=== PATIENT | female | born 1995 | race Caucasian/White ===

== ENCOUNTER → 2017-10-07 | Outpatient (REF) | payer BC ==
[2017-10-07 12:21] LABS: ALBUMIN 4.3 GM/DL (3.2-5.2); ALBUMIN/GLOBULIN RATIO 1.34 (1.00-1.93); ALKALINE PHOSPHATASE 65 U/L (45-117); ALT/SGPT 49 U/L (12-78); ANION GAP 8 MEQ/L (8-16); AST/SGOT 22 U/L (7-37); BILIRUBIN,TOTAL 0.8 MG/DL (0.2-1.0); BLOOD UREA NITROGEN 13 MG/DL (7-18); CALCIUM LEVEL 9.4 MG/DL (8.5-10.1); CARBON DIOXIDE LEVEL 29 MEQ/L (21-32); CHLORIDE LEVEL 105 MEQ/L (98-107); CREATININE FOR GFR 0.69 MG/DL (0.55-1.02); GLOMERULAR FILTRATION RATE > 60.0 (>60); GLUCOSE, FASTING 65 MG/DL (70-105); POTASSIUM SERUM 3.9 MEQ/L (3.5-5.1); SODIUM LEVEL 142 MEQ/L (136-145); TOTAL PROTEIN 7.5 GM/DL (6.4-8.2)
== END ==
LOC: M SFHCCLAY 08:13
PROVIDERS: ATTEND Nurse Practitioner Family
DX: E87.6 Hypokalemia (principal)

== ENCOUNTER → 2017-10-20 | Outpatient (CLI) | payer BC ==
[~2017-10-20] MED LIST: ISOVUE-370 76% 100ML VIAL (Q9967) As Ordered ONE
--- NOTE | 2017-10-21 16:28 | REP ---
CT pulmonary angiogram: With IV contrast. History: Chest pain. Comparison studies: No comparison study. Contrast dose: 75 cc's of Isovue [address] technique: Helical scanning is acquired and overlapping 1.5 mm and contiguous 3 mm axial images are reformatted. In addition, a 3-D work station is deployed to generate thick slab maximum intensity projection images in sagittal and coronal imaging projections. CT pulmonary angiographic findings: There is good opacification of the pulmonary arterial tree and there is no CT evidence to suggest pulmonary embolus. Maximal intensity projection images show no evidence of filling defect or vessel cutoff. There is no evidence of hilar or mediastinal mass or adenopathy. The thoracic aorta enhances homogeneously and is normal in caliber and contour. No adrenal lesion is seen. Lung window settings demonstrate granulomatous calcifications scattered in the lungs bilaterally. No endobronchial disease is seen. No significant pulmonary nodule or mass lesion is observed. No infiltrate is seen. Impression: No active disease. Scattered granulomatous calcifications. Signed by Toribio Nix MD 10/21/2017 04:19 P
== END ==
LOC: M RAD 18:29
PROVIDERS: ATTEND Internal Medicine Pulmonary Disease
DX: R07.89 Other chest pain (principal); R91.8 Other nonspecific abnormal finding of lung field
CPT/HCPCS: 71275; Q9967

== ENCOUNTER → 2017-10-23 | Outpatient (CLI) | payer BC | LOC: M SMT 11:08 | PROVIDERS: ATTEND Internal Medicine Pulmonary Disease | DX: R91.1 Solitary pulmonary nodule (principal) ==

== ENCOUNTER → 2017-11-04 | Outpatient (REF) | payer BC ==
[2017-11-04 12:08] LABS: ALBUMIN/GLOBULIN RATIO 1.21 (1.00-1.93); ALKALINE PHOSPHATASE 67 U/L (45-117); ALT/SGPT 39 U/L (12-78); ANION GAP 7 MEQ/L (8-16); AST/SGOT 15 U/L (7-37); BILIRUBIN,TOTAL 0.5 MG/DL (0.2-1.0); BLOOD UREA NITROGEN 11 MG/DL (7-18); CALCIUM LEVEL 9.1 MG/DL (8.5-10.1); CARBON DIOXIDE LEVEL 29 MEQ/L (21-32); CHLORIDE LEVEL 105 MEQ/L (98-107); CREATININE FOR GFR 0.65 MG/DL (0.55-1.02); GLOMERULAR FILTRATION RATE > 60.0 (>60); GLUCOSE, FASTING 89 MG/DL (70-105); MAGNESIUM LEVEL 1.9 MG/DL (1.8-2.4); POTASSIUM SERUM 4.3 MEQ/L (3.5-5.1); SODIUM LEVEL 141 MEQ/L (136-145); T UPTAKE 33 % (30-39); THYROXINE (T4) 9.6 UG/DL (4.5-12.0); TOTAL PROTEIN 7.3 GM/DL (6.4-8.2)
[2017-11-06 00:11] LABS: Lyme Disease IgG/IgM Antibodie <0.91 ISR (0.00-0.90); Lyme Disease IgM Ab Quantitati <0.80 index (0.00-0.79)
== END ==
LOC: M SFHCCLAY 07:22
PROVIDERS: ATTEND Nurse Practitioner Family
DX: E87.6 Hypokalemia (principal); L30.9 Dermatitis, unspecified; R07.9 Chest pain, unspecified

== ENCOUNTER → 2017-11-07 | Outpatient (CLI) | payer BC ==
[2017-11-07 18:05] LABS: BASO % 0.4 % (0.0-1.0); EOS # 0.1 10^3/uL (0.0-0.50); EOS % 0.6 % (0.0-3.0); IMMATURE GRANULOCYTE % 0.3 % (0-0); LYMPH # 2.5 10^3/uL (1.5-6.5); LYMPH % 22.9 % (24.0-44.0); MEAN CORPUSCULAR HEMOGLOBIN 28.3 pg (27.0-33.0); MEAN CORPUSCULAR HGB CONC 33.3 g/dl (32.0-36.5); MEAN CORPUSCULAR VOLUME 85.1 fl (80.0-96.0); MONO # 0.6 10^3/uL (0.0-0.8); MONO % 5.3 % (0.0-5.0); NEUTROPHILS # 7.6 10^3/uL (1.8-7.7); NEUTROPHILS % 70.5 % (36.0-66.0); PLATELET COUNT, AUTOMATED 269 10^3/uL (150-450); RED CELL DISTRIBUTION WIDTH 12.4 % (11.5-14.5); WHITE BLOOD COUNT 10.8 10^3/uL (4.0-10.0)
[2017-11-07 18:08] LABS: ALBUMIN 4.2 GM/DL (3.2-5.2); ALKALINE PHOSPHATASE 73 U/L (45-117); ALT/SGPT 35 U/L (12-78); AST/SGOT 14 U/L (7-37); BILIRUBIN,DIRECT 0.1 MG/DL (0.0-0.2); BILIRUBIN,TOTAL 0.4 MG/DL (0.2-1.0); CALCIUM LEVEL 8.7 MG/DL (8.5-10.1); CREATININE FOR GFR 0.95 MG/DL (0.55-1.02); GLOMERULAR FILTRATION RATE > 60.0 (>60); TOTAL PROTEIN 7.7 GM/DL (6.4-8.2)
[2017-11-07 19:38] LABS: ERYTHROCYTE SEDIMENTATION RATE 11 mm/hr (0-20)
[2017-11-12 00:07] LABS: SJOGREN'S ANTI SS-A <0.2 AI (0.0-0.9); SJOGREN'S ANTI SS-B <0.2 AI (0.0-0.9)
[2017-11-12 14:15] LABS: AUREOBASIDIUM PULLULANS Negative (Negative); MICROPOLYSPORA FAENI AB Negative (Negative); PIGEON SERUM AB Negative (Negative); THERMOACTINOMYCES SACCHARI Negative (Negative); THERMOACTINOMYCES VULGARIS Negative (Negative); VITAMIN D 1,25 DIHYDROXY 38.5 pg/mL (19.9-79.3)
== END ==
LOC: M LAB 16:41
PROVIDERS: ATTEND Internal Medicine Pulmonary Disease
DX: R07.89 Other chest pain (principal)

== ENCOUNTER → 2017-11-11 | Outpatient (CLI) | payer BC ==
[~2017-11-11] MED LIST changes: -ISOVUE-370 76% 100ML VIAL (Q9967) As Ordered ONE; +METHACHOLINE KIT (J7674) INH ONE
--- NOTE | 2017-11-11 09:20 | PFTRPT ---
Tech: Sincere ROMANO RRT Age: 22 Sex: Female Race: Height: 67.00 Inches Weight: 247.00 Lbs BSA: 2.21 Diagnosis: R07.89 METHACHOLINE CHALLENGE REPORT ORDERING PROVIDER: Marvin Larkin DO DATE OF SERVICE: 11/11/17 INTERPRETATION: The study was of excellent technical quality. Under protocol, methacholine was administered. Even after a maximal dose of 25 mg (188.875 CDUs ), no provocation dose was achieved. IMPRESSION: Negative methacholine challenge study. MTDD
== END ==
LOC: M CARPUL 08:33
PROVIDERS: ATTEND Internal Medicine Pulmonary Disease
DX: R07.89 Other chest pain (principal)
CPT/HCPCS: 94070; J7674

== ENCOUNTER 2017-11-20 15:41 | Emergency (ER) | payer BC ==
[2017-11-20] MEDS: ACETAMINOPHEN TAB 650MG DOSE (2X325MG) PO (16:45)
[2017-11-20 17:34] LABS: BASO % 0.2 % (0.0-1.0); EOS # 0.1 10^3/uL (0.0-0.50); EOS % 0.9 % (0.0-3.0); IMMATURE GRANULOCYTE % 0.5 % (0-0); LYMPH # 0.5 10^3/uL (1.5-6.5); LYMPH % 8.9 % (24.0-44.0); MEAN CORPUSCULAR HEMOGLOBIN 27.7 pg (27.0-33.0); MEAN CORPUSCULAR HGB CONC 33.3 g/dl (32.0-36.5); MEAN CORPUSCULAR VOLUME 83.2 fl (80.0-96.0); MONO # 0.5 10^3/uL (0.0-0.8); MONO % 7.7 % (0.0-5.0); NEUTROPHILS # 4.8 10^3/uL (1.8-7.7); NEUTROPHILS % 81.8 % (36.0-66.0); PLATELET COUNT, AUTOMATED 174 10^3/uL (150-450); RED CELL DISTRIBUTION WIDTH 12.6 % (11.5-14.5); WHITE BLOOD COUNT 5.8 10^3/uL (4.0-10.0)
[2017-11-20 17:50] LABS: PLT CLUMPS? POS FLAG; POS COUNT POS FLAG
[2017-11-20 17:51] LABS: ADD MORPHOLOGY? YES; PLATELET CLUMPS SMALL AMT
[2017-11-20] MEDS: NS 1,000 ML IV (18:00)
[2017-11-20 18:09] LABS: ANION GAP 9 MEQ/L (8-16); BLOOD UREA NITROGEN 5 MG/DL (7-18); CALCIUM LEVEL 8.6 MG/DL (8.5-10.1); CARBON DIOXIDE LEVEL 26 MEQ/L (21-32); CHLORIDE LEVEL 98 MEQ/L (98-107); CREATININE FOR GFR 0.67 MG/DL (0.55-1.02); GLOMERULAR FILTRATION RATE > 60.0 (>60); GLUCOSE, FASTING 85 MG/DL (70-105); POTASSIUM SERUM 3.2 MEQ/L (3.5-5.1); SODIUM LEVEL 133 MEQ/L (136-145)
[2017-11-20] MEDS: POTASSIUM CHLORIDE 10 MEQ SR TABLET PO (18:28)
[2017-11-20] MEDS: LIDOCAINE VISCOUS 2% SOLN 15ML UDC PO (18:49)
[2017-11-20] MEDS: AZITHROMYCIN 250 MG TAB PO ×2 (19:08→19:20)
[2017-11-20] MEDS: FIORICET TAB PO (19:08)
== END 2017-11-20 19:27 | disposition home or self-care (01) ==
LOC: M ED 15:41
DX: J02.0 Streptococcal pharyngitis (principal); R51 Headache; R50.9 Fever, unspecified; M54.2 Cervicalgia; E87.6 Hypokalemia; Z79.899 Other long term (current) drug therapy; Z88.8 Allergy status to other drugs, medicaments and biological substances
CPT/HCPCS: 80048

== ENCOUNTER → 2017-12-02 | Outpatient (REF) | payer BC ==
[2017-12-02 12:15] LABS: ANION GAP 6 MEQ/L (8-16); BLOOD UREA NITROGEN 15 MG/DL (7-18); CALCIUM LEVEL 8.9 MG/DL (8.5-10.1); CARBON DIOXIDE LEVEL 29 MEQ/L (21-32); CHLORIDE LEVEL 107 MEQ/L (98-107); CREATININE FOR GFR 0.63 MG/DL (0.55-1.02); GLOMERULAR FILTRATION RATE > 60.0 (>60); GLUCOSE, FASTING 88 MG/DL (70-105); POTASSIUM SERUM 4.1 MEQ/L (3.5-5.1); SODIUM LEVEL 142 MEQ/L (136-145)
[2017-12-02 12:24] LABS: CORTISOL AM 13.9 UG/DL (4.3-22.4)
== END ==
LOC: M SFHCCLAY 09:04
DX: E87.6 Hypokalemia (principal)
CPT/HCPCS: 82533

== ENCOUNTER → 2017-12-10 | Outpatient (REF) | payer BC ==
[2017-12-10 17:28] LABS: ANION GAP 5 MEQ/L (8-16); CARBON DIOXIDE LEVEL 30 MEQ/L (21-32); CHLORIDE LEVEL 106 MEQ/L (98-107); POTASSIUM SERUM 3.8 MEQ/L (3.5-5.1); SODIUM LEVEL 141 MEQ/L (136-145)
== END ==
LOC: M SFHCCLAY 10:00
DX: E87.6 Hypokalemia (principal)
CPT/HCPCS: 80051

== ENCOUNTER → 2017-12-11 | Outpatient (CLI) | payer BC ==
[2017-12-16 10:16] LABS: ALDOS/RENIN RATIO 5.1 (0.0-30.0); ALDOSTERONE 13.6 ng/dL (0.0-30.0); RENIN ACTIVITY 2.669 ng/mL/hr (0.167-5.380)
== END ==
LOC: M LAB 11:31
DX: E87.6 Hypokalemia (principal); J18.1 Lobar pneumonia, unspecified organism
CPT/HCPCS: 84244

== ENCOUNTER → 2018-01-07 | Outpatient (REF) | payer BC ==
[2018-01-07 11:47] LABS: ANION GAP 7 MEQ/L (8-16); CARBON DIOXIDE LEVEL 29 MEQ/L (21-32); CHLORIDE LEVEL 104 MEQ/L (98-107); POTASSIUM SERUM 4.1 MEQ/L (3.5-5.1); SODIUM LEVEL 140 MEQ/L (136-145)
== END ==
LOC: M SFHCCLAY 09:14
DX: E87.6 Hypokalemia (principal)

== ENCOUNTER → 2018-03-18 | Outpatient (REF) | payer BC ==
[2018-03-18 12:14] LABS: ANION GAP 5 MEQ/L (8-16); BLOOD UREA NITROGEN 13 MG/DL (7-18); CARBON DIOXIDE LEVEL 30 MEQ/L (21-32); CHLORIDE LEVEL 106 MEQ/L (98-107); CREATININE FOR GFR 0.61 MG/DL (0.55-1.30); GLOMERULAR FILTRATION RATE > 60.0 (>60); GLUCOSE, FASTING 67 MG/DL (70-100); POTASSIUM SERUM 3.8 MEQ/L (3.5-5.1); SODIUM LEVEL 141 MEQ/L (136-145)
== END ==
LOC: M LABDRAWC 11:31
DX: E87.6 Hypokalemia (principal)
CPT/HCPCS: 80048

== ENCOUNTER → 2018-10-22 | Outpatient (CLI) | payer BC | LOC: M CLY 11:12 | DX: S99.911A Unspecified injury of right ankle, initial encounter (principal); X58.XXXA Exposure to other specified factors, initial encounter; Y92.9 Unspecified place or not applicable; Y93.9 Activity, unspecified; Y99.9 Unspecified external cause status | CPT/HCPCS: 73610 ==

== ENCOUNTER → 2018-10-22 | Outpatient (REF) | payer BC ==
[2018-10-22 16:30] LABS: HEMATOCRIT 44.9 % (36.0-47.0); HEMOGLOBIN 14.6 g/dl (12.0-15.5); MEAN CORPUSCULAR HEMOGLOBIN 28.6 pg (27.0-33.0); MEAN CORPUSCULAR HGB CONC 32.5 g/dl (32.0-36.5); MEAN CORPUSCULAR VOLUME 87.9 fl (80.0-96.0); PLATELET COUNT, AUTOMATED 260 10^3/uL (150-450); RED BLOOD COUNT 5.11 10^6/uL (4.00-5.40); RED CELL DISTRIBUTION WIDTH 12.9 % (11.5-14.5); WHITE BLOOD COUNT 8.9 10^3/uL (4.0-10.0)
[2018-10-22 16:45] LABS: ALBUMIN 3.8 GM/DL (3.2-5.2); ALBUMIN/GLOBULIN RATIO 0.97 (1.00-1.93); ALKALINE PHOSPHATASE 95 U/L (45-117); ALT/SGPT 55 U/L (12-78); ANION GAP 9 MEQ/L (8-16); AST/SGOT 30 U/L (7-37); BILIRUBIN,TOTAL 0.8 MG/DL (0.2-1.0); BLOOD UREA NITROGEN 17 MG/DL (7-18); CALCIUM LEVEL 8.5 MG/DL (8.5-10.1); CARBON DIOXIDE LEVEL 27 MEQ/L (21-32); CHLORIDE LEVEL 103 MEQ/L (98-107); CHOLESTEROL LEVEL 165 MG/DL (<200); CHOLESTEROL RISK RATIO 3.055 (<5); CREATININE FOR GFR 0.79 MG/DL (0.55-1.30); GLOMERULAR FILTRATION RATE > 60.0 (>60); GLUCOSE, FASTING 78 MG/DL (70-100); HDL CHOLESTEROL 54 MG/DL (>40); LDL CHOLESTEROL 87 MG/DL (<100); NON-HDL-C 111 MG/DL; POTASSIUM SERUM 4.1 MEQ/L (3.5-5.1); SODIUM LEVEL 139 MEQ/L (136-145); TOTAL PROTEIN 7.7 GM/DL (6.4-8.2); TRIGLYCERIDES LEVEL 118 MG/DL (<150)
== END ==
LOC: M SFHCCLAY 10:49
DX: E87.6 Hypokalemia (principal); F41.9 Anxiety disorder, unspecified; Z13.29 Encounter for screening for other suspected endocrine disorder; Z13.6 Encounter for screening for cardiovascular disorders
CPT/HCPCS: 84443

== ENCOUNTER → 2019-10-04 | Outpatient (CLI) | payer BC ==
[~2019-10-04] MED LIST changes: +AZIT500T5 PO; +LEVO500T3 PO; +LORA1TAB12 PO; -METHACHOLINE KIT (J7674) INH ONE; +POTA10CA32 PO; +VENL37.52 PO
--- NOTE | 2019-10-04 12:51 | REP ---
Five views right ribs and chest: 10/04/2019. Indication: Right-sided rib pain. Comparison: 12/02/2017. Findings: There is no evidence of rib fracture. Mild S-shaped thoracolumbar scoliosis is noted. Small left upper lobe granuloma is again noted. The lungs are free of airspace consolidation. There is no pleural effusion, pneumothorax or underlying contusion. The cardiac silhouette is unremarkable. Impression: There is no evidence of an acute rib fracture. Electronically Signed by Gab Rodriguez DO 10/04/2019 12:41 P
[2019-10-04 19:37] LABS: APPEARANCE, URINE CLEAR (CLEAR); BACTERIA, URINE AUTO NEGATIVE (NEGATIVE); BILIRUBIN, URINE AUTO NEGATIVE (NEGATIVE); BLOOD, URINE BLOOD 1+ (NEGATIVE); COLOR, URINE STRAW (YELLOW); GLUCOSE, URINE (UA) AUTO NEGATIVE (NEGATIVE); KETONE, URINE AUTO NEGATIVE (NEGATIVE); LEUKOCYTE ESTERASE, URINE AUTO NEGATIVE (NEGATIVE); NITRITE, URINE AUTO NEGATIVE (NEGATIVE); PROTEIN, URINE AUTO NEGATIVE (NEGATIVE); RBC, URINE AUTO 0 /HPF (0-3); SPECIFIC GRAVITY URINE AUTO 1.001 (1.002-1.035); SQUAMOUS EPITHELIAL CELL UR AU 0 /HPF (0-6); UROBILINOGEN, URINE AUTO 0.2 mg/dL (0.0-2.0); WBC, URINE AUTO 0 /HPF (0-3)
== END ==
LOC: M CLY 11:49
PROVIDERS: ATTEND Family Medicine
DX: R07.81 Pleurodynia (principal)

== ENCOUNTER 2019-12-10 12:25 | Emergency (ER) | payer BC, MEDICAID, OTHER, SELFPAY ==
[~2019-12-10] VITALS: Ht 175.3 cm; Wt 136.2 kg
[~2019-12-10 12:25] MED LIST changes: -LORA1TAB12 PO; +LORA1TAB4 PO
[2019-12-10 13:25] LABS: BASO % 0.5 % (0.0-1.0); EOS % 0.7 % (0.0-3.0); HEMATOCRIT 47.3 % (36.0-47.0); LYMPH % 18.3 % (24.0-44.0); MEAN CORPUSCULAR HEMOGLOBIN 26.7 pg (27.0-33.0); MEAN CORPUSCULAR HGB CONC 31.7 g/dl (32.0-36.5); MEAN CORPUSCULAR VOLUME 84.3 fl (80.0-96.0); MONO % 4.4 % (0.0-5.0); NEUTROPHILS % 75.6 % (36.0-66.0); PLATELET COUNT, AUTOMATED 309 10^3/uL (150-450); RED BLOOD COUNT 5.61 10^6/uL (4.00-5.40); WHITE BLOOD COUNT 8.7 10^3/uL (4.0-10.0)
[2019-12-10 13:26] LABS: EOS # 0.1 10^3/uL (0.0-0.5); LYMPH # 1.6 10^3/uL (1.5-5.0); MONO # 0.4 10^3/uL (0.0-0.8); NEUTROPHILS # 6.6 10^3/uL (1.5-8.5)
--- NOTE | 2019-12-10 13:34 | REP ---
Portable chest x-ray: Sitting AP view. History: Chest pain. Comparison chest x-ray: October 04, 2019. Findings: There is a granulomatous calcification in the left apex unchanged. Hazy opacity is seen in the lateral pleural angle. I cannot exclude infiltrate in the left lower lobe. Remaining lung alvarado are clear. Heart is not enlarged. Pulmonary vasculature is not increased. Impression: Possible infiltrate left base laterally. Electronically Signed by Toribio Nix MD 12/10/2019 01:25 P
[2019-12-10 13:43] LABS: BLOOD UREA NITROGEN 14 MG/DL (7-18); CARBON DIOXIDE LEVEL 27 MEQ/L (21-32); CHLORIDE LEVEL 108 MEQ/L (98-107); CK-MB VALUE MASS < 1.0 NG/ML (<3.6); CPK CREATINE PHOSPHOKINASE 140 U/L (26-192); CREATININE FOR GFR 0.85 MG/DL (0.55-1.30); GLOMERULAR FILTRATION RATE > 60.0 (>60); GLUCOSE, FASTING 89 MG/DL (70-100); MB/CK RELATIVE INDEX 0.71 (< OR =4); POTASSIUM SERUM 3.9 MEQ/L (3.5-5.1); SODIUM LEVEL 142 MEQ/L (136-145); TROPONIN I < 0.02 NG/ML (< 0.10)
[2019-12-10] MEDS ORDERED: GI COCKTAIL 50ML BTL(HYOSCYAMINE/MAALOX/LIDOCAINE VISCOUS)(1:3:1) PO ONE (14:30)
[2019-12-10 15:28] LABS: CK-MB VALUE MASS < 1.0 NG/ML (<3.6); CPK CREATINE PHOSPHOKINASE 126 U/L (26-192); MB/CK RELATIVE INDEX 0.79 (< OR =4); TROPONIN I < 0.02 NG/ML (< 0.10)
[2019-12-10 15:35] LABS: HCG, SERUM QUALITATIVE NEGATIVE (NEGATIVE)
[2019-12-10] MEDS ORDERED: DOXY100C37 PO (15:39)
[2019-12-10 15:45] VITALS: BP 131/69
--- NOTE | 2019-12-11 09:55 | ECGEPIP ---
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
--- NOTE | 2019-12-11 09:57 | ECGEPIP ---
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
== END 2019-12-10 15:47 | disposition home or self-care (01) ==
LOC: M ED 12:25
DX: J18.9 Pneumonia, unspecified organism (principal); B34.9 Viral infection, unspecified; J06.9 Acute upper respiratory infection, unspecified; R00.0 Tachycardia, unspecified; R91.8 Other nonspecific abnormal finding of lung field; F41.9 Anxiety disorder, unspecified; K21.9 Gastro-esophageal reflux disease without esophagitis; Z88.6 Allergy status to analgesic agent

== ENCOUNTER → 2019-12-24 | Outpatient (CLI) | payer OTHER ==
[~2019-12-24] MED LIST changes: +DOXY100C37 PO
--- NOTE | 2019-12-24 12:09 | REP ---
PA and lateral chest three views two PA and single lateral projections: Comparisons are 12/02/2017 and 12/10/2019. The suspected infiltrate inferolaterally in the left lung on 12/10/2019 is no longer present. The lung alvarado are clear. The cardiac size is normal. The nima, mediastinum, and skeletal structures are unremarkable. Impression: Negative PA and lateral chest. Electronically Signed by Yusef Chavarria MD 12/24/2019 12:01 P
== END ==
LOC: M CLY 11:39
PROVIDERS: ATTEND Nurse Practitioner Family
DX: J18.9 Pneumonia, unspecified organism (principal)

== ENCOUNTER → 2019-12-29 | Outpatient (CLI) | payer OTHER ==
[~2019-12-29] MED LIST changes: +ISOVUE-370 76% 100ML VIAL (Q9967) As Ordered ONE
--- NOTE | 2019-12-29 09:57 | REPVR ---
PROCEDURE INFORMATION: Exam: CT Temporal Bones Without Contrast. Exam date and time: 12/29/2019 9:34 AM Age: 24 years old Clinical indication: Other: Tinnitus; Additional info: Localized swelling, mass and lump, tinnitus TECHNIQUE: Imaging protocol: Computed tomography images of the temporal bones without contrast. Radiation optimization: All CT scans at this facility use at least one of these dose optimization techniques: automated exposure control; mA and/or kV adjustment per patient size (includes targeted exams where dose is matched to clinical indication); or iterative reconstruction. COMPARISON: No relevant prior studies available. FINDINGS: Left External Ear structures: The external ear structures are well developed. The external ear is clear. The scutum and tympanic membrane are identified and are unremarkable. Left Middle Ear: The middle ear structures are unremarkable. Specifically, the middle ear cavity is well developed and aerated and the ossicles are clearly identified. The oval windows and round windows are patent. Left Inner ear: The inner ear structures are unremarkable. Specifically, the internal auditory canals are symmetric and unremarkable. The emerson falciformis appears normal. The cochlea and vestibular system are clearly visualized and appear unremarkable. There appears to be normal development of the cochlea and the modiolus appears normal as visualized. The vestibule are semicircular canals are of normal size and configuration. There is no evidence of labyrinthitis ossificans or otospongiosis /otosclerosis. The vestibular aqueduct is unremarkable without enlargement or flaring. The cochlear aqueduct is identified. Left facial nerve: The facial nerve is visualized without any abnormality seen. There is bone covering over the tympanic segment as visualized. Left Mastoids: Mastoid air cells are well developed. The mastoid air cells are well aerated. Right External Ear structures: The external ear structures are well developed. The external ear is clear. The scutum and tympanic membrane are identified and are unremarkable. Right Middle Ear: The middle ear structures are unremarkable. Specifically, the middle ear cavity is well developed and aerated and the ossicles are clearly identified. The oval windows and round windows are patent. Right Inner ear: The inner ear structures are unremarkable. Specifically, the internal auditory canals are symmetric and unremarkable. The emerson falciformis appears normal. The cochlea and vestibular system are clearly visualized and appear unremarkable. There appears to be normal development of the cochlea and the modiolus appears normal as visualized. The vestibule are semicircular canals are of normal size and configuration. There is no evidence of labyrinthitis ossificans or otospongiosis /otosclerosis. The vestibular aqueduct is unremarkable without enlargement or flaring. The cochlear aqueduct is identified. Right facial nerve: The facial nerve is visualized without any abnormality seen. There is bone covering over the tympanic segment as visualized. Right Mastoids: Mastoid air cells are well developed. The mastoid air cells are well aerated. IMPRESSION: No acute findings with unremarkable CT of the temporal bones and IACs. Electronically signed by: Venus Chase On 12/29/2019 09:57:25 AM
--- NOTE | 2019-12-29 10:02 | REPVR ---
PROCEDURE INFORMATION: Exam: CT Neck With Contrast Exam date and time: 12/29/2019 9:34 AM Age: 24 years old Clinical indication: Mass, lump, or swelling in neck; Additional info: Localized swelling, mass and lump, tinnitus TECHNIQUE: Imaging protocol: Computed tomography images of the neck with intravenous contrast. Radiation optimization: All CT scans at this facility use at least one of these dose optimization techniques: automated exposure control; mA and/or kV adjustment per patient size (includes targeted exams where dose is matched to clinical indication); or iterative reconstruction. Contrast material: ISOVUE 370; Contrast volume: 75 ml; Contrast route: IV; COMPARISON: No relevant prior studies available. FINDINGS: Sinuses: There is a small right maxillary sinus retention cyst or polyp. No significant mucosal disease. No air-fluid levels. Nasopharynx: Unremarkable. Oropharynx: Unremarkable. No significant tonsillar enlargement. Hypopharynx: Unremarkable Larynx: Unremarkable. Normal epiglottis. Retropharyngeal space: Unremarkable. No evidence of retropharyngeal fluid collection. Submandibular/Parotid glands: Normal. Glands are normal in size. Thyroid: Normal. No enlarged or calcified nodules. Lymph nodes: There are few nonenlarged bilateral cervical lymph nodes mainly in upper neck. Trachea: Visualized trachea is unremarkable. Lungs: Unremarkable as visualized. Bones/joints: There is no evidence of spinal stenosis or neural foraminal narrowing. No acute fracture. Straightening of lordosis may be positional or related to muscular spasm. Correlate clinically. Soft tissues: No evidence of focal soft tissue fluid collection. IMPRESSION: Essentially unremarkable soft tissue neck. Electronically signed by: Venus Chase On 12/29/2019 10:01:55 AM
== END ==
LOC: M RAD 09:09
PROVIDERS: ATTEND Otolaryngology
DX: H93.A3 Pulsatile tinnitus, bilateral (principal); R22.1 Localized swelling, mass and lump, neck
CPT/HCPCS: 70480; 70491; Q9967

== ENCOUNTER → 2020-01-18 | Outpatient (CLI) | payer OTHER ==
[~2020-01-18] MED LIST changes: -ISOVUE-370 76% 100ML VIAL (Q9967) As Ordered ONE
--- NOTE | 2020-01-18 10:58 | REP ---
Bilateral carotid artery duplex ultrasound: Peak flow velocity analysis: RIGHT LEFT ICA Peak flow velocity cm/sec 132 cm/sec 113 cm/sec ICA Diastolic flow velocity cm/sec 28.2 cm/sec 30.6 cm/sec ICA/CCA Ratio 1.0 cm/sec 0.7 cm/sec ECA Peak flow velocity cm/sec 107 cm/sec 120 cm/sec CCA Peak flow velocity cm/sec 127 cm/sec 153 cm/sec There is no atheromatous plaque on the right on the left. The peak flow velocities are normal bilaterally. There is no stenosis on the right on the left. There is antegrade flow in the vertebral arteries bilaterally. Impression There is no stenosis on the right or the left. Electronically Signed by Yusef Chavarria MD 01/18/2020 10:49 A
== END ==
LOC: M RAD 10:02
PROVIDERS: ATTEND Otolaryngology
DX: H93.A3 Pulsatile tinnitus, bilateral (principal)

== ENCOUNTER → 2020-02-06 | Outpatient (CLI) | payer OTHER ==
--- NOTE | 2020-02-07 07:22 | REP ---
REASON: Cough. COMPARISON: 12/24/2019 FINDINGS: The superior mediastinal structures are midline. The cardiac silhouette is unremarkable in size, shape, and position. The diaphragmatic surfaces of the lungs are regular, and the costophrenic angles are clear. The pulmonary alvarado are clear. The imaged osseous structures are intact. IMPRESSION: There is no acute cardiopulmonary disease. No change from 12/24/2019. Electronically Signed by Lyle Sanderson DO 02/07/2020 01:28 P
== END ==
LOC: M WUC 12:47
PROVIDERS: ATTEND Physician Assistant
DX: R05 Cough (principal)

== ENCOUNTER → 2020-04-21 | Outpatient (CLI) | payer OTHER ==
[~2020-04-21] MED LIST changes: +PROHANCE 279.3MG/ML 15ML VIAL As Ordered ONE; +PROHANCE 279.3MG/ML 5ML VIAL As Ordered ONE
--- NOTE | 2020-04-21 10:16 | REP ---
MRI brain without and with IV contrast: History: Idiopathic intracranial hypertension . Comparison study: No comparison brain MRI. Technique: Axial and sagittal imaging planes are utilized for T1 and T2-weighted scans. Sequences include spin-echo, fast spin echo, FLAIR, and diffusion weighted sequences. Gadolinium enhancement dose is 20 ml of intravenous ProHance. MRI findings: No bony calvarial lesion is seen. Craniocervical junction and upper cervical cord are normal in appearance. There is no MR evidence of significant paranasal sinus disease. No intraorbital abnormality is seen. The lateral, third, and fourth ventricles are normal in size and position. Petit-white differentiation pattern is intact above and below the tentorium. There is no evidence of intracranial hemorrhage. No mass, infarction, extra-axial fluid collection or midline shift is seen. No abnormal white matter lesion is seen. No abnormal contrast enhancement is seen. Enhancement is noted in a normal intracranial vascular structures. Impression: Negative pre and post contrast enhanced brain MRI study. Electronically Signed by Toribio Nix MD 04/21/2020 10:08 A
--- NOTE | 2020-04-21 11:14 | REP ---
MRI ORBITS WITHOUT AND WITH IV CONTRAST: HISTORY: Idiopathic intracranial hypertension. CONTRAST ENHANCEMENT DOSE: 20 mL of intravenous ProHance. MR TECHNIQUE: Axial coronal and sagittal imaging planes utilized. Pre- and postcontrast T1-and T2-weighted scans were obtained with and without fat saturation. MRI FINDINGS: There is a single mucous retention cyst along the lateral wall of the right maxillary sinus 11 mm in greatest diameter. There is no other MR evidence of paranasal sinus disease. No intraconal or extraconal orbital mass lesion is seen on either side. Ocular globes are unremarkable on T2- and T1-weighted scans. The extraocular musculature is unremarkable. Optic nerves are normal in appearance without evidence of mass or dural sheath effusion. Postcontrast images show enhancement in normal vascular structures. No abnormal intra orbital or periorbital contrast enhancement is seen. The optic chiasm and suprasellar cistern are unremarkable. No arterial abnormality is seen. IMPRESSION: Negative orbital MRI study without and with IV contrast. Electronically Signed by Toribio Nix MD 04/21/2020 01:42 P
== END ==
LOC: M RAD 07:21
PROVIDERS: ATTEND Ophthalmology
DX: G93.2 Benign intracranial hypertension (principal); J34.1 Cyst and mucocele of nose and nasal sinus
CPT/HCPCS: 70543; 70553; A9576

== ENCOUNTER → 2020-05-05 | Outpatient (REF) | payer OTHER ==
[~2020-05-05] MED LIST changes: +METO1TAB32; -PROHANCE 279.3MG/ML 15ML VIAL As Ordered ONE; -PROHANCE 279.3MG/ML 5ML VIAL As Ordered ONE
== END ==
LOC: M SFHCCLAY 08:48
PROVIDERS: ATTEND Nurse Practitioner Family
DX: I49.3 Ventricular premature depolarization (principal); K21.9 Gastro-esophageal reflux disease without esophagitis; F41.9 Anxiety disorder, unspecified; Z53.9 Procedure and treatment not carried out, unspecified reason

== ENCOUNTER → 2020-05-08 | Outpatient (REF) | payer OTHER ==
[~2020-05-08] MED LIST changes: -METO1TAB32
[2020-05-08 11:58] LABS: HEMATOCRIT 42.7 % (36.0-47.0); HEMOGLOBIN 13.7 g/dl (12.0-15.5); MEAN CORPUSCULAR HGB CONC 32.1 g/dl (32.0-36.5); MEAN CORPUSCULAR VOLUME 84.1 fl (80.0-96.0); PLATELET COUNT, AUTOMATED 280 10^3/uL (150-450); RED BLOOD COUNT 5.08 10^6/uL (4.00-5.40)
[2020-05-08 12:09] LABS: ALBUMIN 3.7 GM/DL (3.2-5.2); ALT/SGPT 44 U/L (12-78); BILIRUBIN,TOTAL 0.7 MG/DL (0.2-1.0); BLOOD UREA NITROGEN 12 MG/DL (7-18); CALCIUM LEVEL 9.1 MG/DL (8.5-10.1); CARBON DIOXIDE LEVEL 28 MEQ/L (21-32); CHLORIDE LEVEL 105 MEQ/L (98-107); CHOLESTEROL LEVEL 145 MG/DL (<200); CHOLESTEROL RISK RATIO 3.918 (<5); CREATININE FOR GFR 0.62 MG/DL (0.55-1.30); GLOMERULAR FILTRATION RATE > 60.0 (>60); GLUCOSE, FASTING 83 MG/DL (70-100); HDL CHOLESTEROL 37 MG/DL (>40); LDL CHOLESTEROL 90 MG/DL (<100); NON-HDL-C 108 MG/DL; POTASSIUM SERUM 4.4 MEQ/L (3.5-5.1); SODIUM LEVEL 139 MEQ/L (136-145); TOTAL 25(OH) VITAMIN D 31.2 NG/ML (30.0-100.0); TOTAL PROTEIN 7.2 GM/DL (6.4-8.2); TRIGLYCERIDES LEVEL 88 MG/DL (<150)
== END ==
LOC: M SFHCCLAY 08:38
PROVIDERS: ATTEND Nurse Practitioner Family
DX: I49.3 Ventricular premature depolarization (principal); K21.9 Gastro-esophageal reflux disease without esophagitis; F41.9 Anxiety disorder, unspecified

== ENCOUNTER 2020-09-28 11:25 | Emergency (ER) | payer OTHER ==
[~2020-09-28] VITALS: Ht 177.8 cm; Wt 129.1 kg
[2020-09-28] MEDS ORDERED: METO1TAB32 (11:41)
--- NOTE | 2020-09-28 13:24 | REP ---
INDICATION: cp. COMPARISON: 02/06/2020, 12/24/2019 TECHNIQUE: Two views FINDINGS: The lung alvarado are well inflated. There is no pleural effusion, lateral pleural thickening, apical scarring or pneumothorax. The heart, mediastinal and hilar contours are normal. The aorta and airway are intact. There is no pneumothorax or pneumomediastinum. Bony thorax shows no compression deformity or focal lesion. No free air under the diaphragm. IMPRESSION: 1. No acute cardiopulmonary disease. Stable chest. <Electronically signed by Stuart Perez > 09/28/20 [id number]
[2020-09-28 14:01] VITALS: BP 113/59
--- NOTE | 2020-09-29 09:05 | ECGEPIP ---
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
== END 2020-09-28 14:07 | disposition home or self-care (01) ==
LOC: M ED 11:25
DX: R07.9 Chest pain, unspecified (principal); R05 Cough; Z79.899 Other long term (current) drug therapy

== ENCOUNTER → 2020-10-23 | Outpatient (REF) | payer OTHER ==
[~2020-10-23] MED LIST changes: +METO1TAB32
== END ==
LOC: M LAB REF 16:17
PROVIDERS: ATTEND Physician Assistant Medical
DX: J02.9 Acute pharyngitis, unspecified (principal)

== ENCOUNTER → 2021-02-07 | Outpatient (REF) | payer OTHER | LOC: M LAB REF 15:57 | PROVIDERS: ATTEND Physician Assistant | DX: J02.9 Acute pharyngitis, unspecified (principal) ==

== ENCOUNTER → 2021-03-28 | Outpatient (REF) | payer OTHER | LOC: M PLALAB 10:08 | PROVIDERS: ATTEND Obstetrics & Gynecology | DX: O99.211 Obesity complicating pregnancy, first trimester (principal); Z3A.00 Weeks of gestation of pregnancy not specified; Z53.9 Procedure and treatment not carried out, unspecified reason ==

== ENCOUNTER → 2021-04-25 | Outpatient (CLI) | payer OTHER ==
[2021-04-25 13:31] LABS: APPEARANCE, URINE CLEAR (CLEAR); BACTERIA, URINE AUTO 1+ (NEGATIVE); BILIRUBIN, URINE AUTO NEGATIVE (NEGATIVE); BLOOD, URINE BLOOD NEGATIVE (NEGATIVE); COLOR, URINE YELLOW (YELLOW); GLUCOSE, URINE (UA) AUTO NEGATIVE (NEGATIVE); KETONE, URINE AUTO NEGATIVE (NEGATIVE); LEUKOCYTE ESTERASE, URINE AUTO NEGATIVE (NEGATIVE); NITRITE, URINE AUTO NEGATIVE (NEGATIVE); PROTEIN, URINE AUTO NEGATIVE (NEGATIVE); RBC, URINE AUTO 0 /HPF (0-3); SPECIFIC GRAVITY URINE AUTO 1.004 (1.002-1.035); SQUAMOUS EPITHELIAL CELL UR AU 2 /HPF (0-6); UROBILINOGEN, URINE AUTO 0.2 mg/dL (0.0-2.0); WBC, URINE AUTO 1 /HPF (0-3)
== END ==
LOC: M PLALAB 09:37
PROVIDERS: ATTEND Advanced Practice Midwife
DX: Z34.81 Encounter for supervision of other normal pregnancy, first trimester (principal); Z3A.00 Weeks of gestation of pregnancy not specified

== ENCOUNTER → 2021-05-18 | Outpatient (CLI) | payer OTHER ==
[~2021-05-18] MED LIST changes: -DOXY100C37 PO; +DOXY1CAP62 PO
--- NOTE | 2021-05-21 18:55 | HOLTMON ---
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 2 PACs but no PSVT 2 ventricular couplets but no ventricular tachycardia No significant bradyarrhythmia or pauses. the patient did not report experiencing palpitations during this 24 hours of monitoring. Findings well within normal limits Electronically Signed on 05-21-2021 18:54:43 EDT by Brandon Kennedy
== END ==
LOC: M EKG 12:35
PROVIDERS: ATTEND Internal Medicine Cardiovascular Disease
DX: R00.2 Palpitations (principal)

== ENCOUNTER → 2021-05-22 | Outpatient (CLI) | payer OTHER | LOC: M LAB 11:55 | PROVIDERS: ATTEND Advanced Practice Midwife | DX: R00.2 Palpitations (principal) ==

== ENCOUNTER → 2021-05-22 | Outpatient (CLI) | payer OTHER ==
[2021-05-22 16:38] LABS: HEMOGLOBIN 13.3 g/dl (12.0-15.5); MEAN CORPUSCULAR HEMOGLOBIN 27.7 pg (27.0-33.0); MEAN CORPUSCULAR HGB CONC 33.3 g/dl (32.0-36.5); MEAN CORPUSCULAR VOLUME 83.2 fl (80.0-96.0); PLATELET COUNT, AUTOMATED 237 10^3/uL (150-450); RED BLOOD COUNT 4.81 10^6/uL (4.00-5.40); WHITE BLOOD COUNT 9.9 10^3/uL (4.0-10.0)
[2021-05-22 17:17] LABS: FREE T4 0.78 NG/DL (0.76-1.46)
[2021-05-22 17:46] LABS: GC DNA AMPLIFICATION NEGATIVE (NEGATIVE)
[2021-05-22 19:19] LABS: HEPATITIS C VIRUS ABY INDEX < 0.0 INDEX (<0.8)
[2021-05-22 19:20] LABS: HIV 1&2 SCREEN CENTAUR NEGATIVE (NEGATIVE)
== END ==
LOC: M PLALAB 12:23
PROVIDERS: ATTEND Specialist
DX: Z34.81 Encounter for supervision of other normal pregnancy, first trimester (principal)

== ENCOUNTER → 2021-06-26 | Outpatient (CLI) | payer OTHER ==
[~2021-06-26] MED LIST changes: +COLA100C5 PO; +DOXY-443 PO; -DOXY1CAP62 PO; -LEVO500T3 PO; +LEVO500T4 PO; +PERCOCET PO
== END ==
LOC: M PLALAB 08:36
PROVIDERS: ATTEND Obstetrics & Gynecology
DX: O99.211 Obesity complicating pregnancy, first trimester (principal)

== ENCOUNTER → 2021-07-03 | Outpatient (CLI) | payer OTHER ==
[~2021-07-03] MED LIST changes: -COLA100C5 PO; -DOXY-443 PO; +DOXY1CAP62 PO; +LEVO500T3 PO; -LEVO500T4 PO; -PERCOCET PO
--- NOTE | 2021-07-03 15:03 | REP ---
INDICATION: ANATOMY. COMPARISON: None. TECHNIQUE: Transabdominal scanning FINDINGS: Multiple ultrasonographic images of the gravid uterus shows a single living intrauterine gestation in the cephalic presentation. Doppler interrogation of the heart shows a heart rate of 147 beats per minute. The subjective amniotic fluid volume is within normal limits. The placenta is posterior and not low-lying. The cervix measures 3.6 cm in length and is closed. BPD: 5.4 cm 22 weeks 2 days HC: 19.3 cm 21 weeks 4 days AC: 15.2 cm 20 weeks 3 days FL: 3.7 cm 21 weeks 6 days The estimated weight is 402 g which is at the 15th percentile for a 21 week 6 day gestational age. anatomical structures seen to be unremarkable are as follows: The kidneys. All other anatomical structures were suboptimally visualized. The performing technologist question the possibility of subcutaneous fluid seen from the level of the posterior neck to the tip of the spine. This is seen is a subtle area of decreased echoes. IMPRESSION: Single living intrauterine gestation as described above with an estimated gestational age of 21 weeks 3 days via composite criteria and an estimated date of delivery of 11/10/2021. Incomplete anatomical screen and other findings as described above requiring follow-up. <Electronically signed by Lyle Sanderson > 07/03/21 [id number]
== END ==
LOC: M WHC 12:46
PROVIDERS: ATTEND Advanced Practice Midwife
DX: Z36.9 Encounter for antenatal screening, unspecified (principal); Z3A.21 21 weeks gestation of pregnancy

== ENCOUNTER → 2021-07-06 | Outpatient (CLI) | payer OTHER | LOC: M PLALAB 12:34 | PROVIDERS: ATTEND Advanced Practice Midwife | DX: O28.3 Abnormal ultrasonic finding on antenatal screening of mother (principal); Z3A.00 Weeks of gestation of pregnancy not specified ==

== ENCOUNTER → 2021-07-16 | Outpatient (REF) | payer OTHER ==
[2021-07-16 18:22] LABS: APPEARANCE, URINE CLEAR (CLEAR); BACTERIA, URINE AUTO NEGATIVE (NEGATIVE); BILIRUBIN, URINE AUTO NEGATIVE (NEGATIVE); BLOOD, URINE BLOOD 1+ (NEGATIVE); COLOR, URINE YELLOW (YELLOW); GLUCOSE, URINE (UA) AUTO NEGATIVE (NEGATIVE); KETONE, URINE AUTO NEGATIVE (NEGATIVE); LEUKOCYTE ESTERASE, URINE AUTO NEGATIVE (NEGATIVE); MUCUS, URINE SMALL (NEGATIVE); NITRITE, URINE AUTO NEGATIVE (NEGATIVE); PROTEIN, URINE AUTO NEGATIVE (NEGATIVE); RBC, URINE AUTO 1 /HPF (0-3); SQUAMOUS EPITHELIAL CELL UR AU 0 /HPF (0-6); UROBILINOGEN, URINE AUTO 0.2 mg/dL (0.0-2.0); WBC, URINE AUTO 0 /HPF (0-3)
== END ==
LOC: M SFHCWAGY 17:36
PROVIDERS: ATTEND Advanced Practice Midwife
DX: O26.899 Other specified pregnancy related conditions, unspecified trimester (principal); Z3A.00 Weeks of gestation of pregnancy not specified

== ENCOUNTER → 2021-08-07 | Outpatient (CLI) | payer OTHER ==
--- NOTE | 2021-08-07 13:17 | REP ---
INDICATION: GROWTH. COMPARISON: 07/03/2021 TECHNIQUE: Real-time sonographic trans abdominal scanning FINDINGS: Multiple ultrasonographic images of the gravid uterus shows a single living intrauterine gestation in the cephalic presentation. Doppler interrogation of the heart shows a heart rate of 138 beats per minute. The placenta is posterior and not low-lying. A cervical length measurement was not obtained. BPD: 7.4 cm 29 weeks 5 days HC: 26.9 cm 29 weeks 2 days AC: 24.0 cm 28 weeks 2 days FL: 5.1 cm 27 weeks 3 days The estimated weight is 1191 g which is at the 88th percentile for a 26 week 6 day gestational age. anatomical structures seen to be unremarkable are as follows: Cerebellum, upper lip, kidneys, and urinary bladder. The remainder of the anatomical survey is incomplete. There is less than optimal visualization of the intracranial contents, spine, four-chamber heart, ventricular outflow tracts, cord insertion, three-vessel umbilical cord, stomach, and upper lower extremities. IMPRESSION: Single living intrauterine gestation as described above with an estimated gestational age of 28 weeks 5 days via composite criteria and an estimated date of delivery of 10/25/2021 by today's exam. No anomalies were detected, however, anatomical screen is incomplete as described above. Follow-up is recommended. <Electronically signed by Lyle Sanderson > 08/07/21 [id number]
== END ==
LOC: M WHC 07:28
PROVIDERS: ATTEND Advanced Practice Midwife
DX: O99.212 Obesity complicating pregnancy, second trimester (principal); Z3A.24 24 weeks gestation of pregnancy

== ENCOUNTER → 2021-09-06 | Outpatient (CLI) | payer OTHER ==
[2021-09-06 17:53] LABS: HEMOGLOBIN A1c 4.7 %
[2021-09-06 18:23] LABS: GC DNA AMPLIFICATION NEGATIVE (NEGATIVE)
== END ==
LOC: M PLALAB 14:07
PROVIDERS: ATTEND Advanced Practice Midwife
DX: O99.213 Obesity complicating pregnancy, third trimester (principal); Z3A.24 24 weeks gestation of pregnancy

== ENCOUNTER → 2021-10-05 | Outpatient (REF) | payer OTHER ==
[~2021-10-05] MED LIST changes: +DOXY-443 PO; -DOXY1CAP62 PO
== END ==
LOC: M SFHCWAGY 12:39
PROVIDERS: ATTEND Advanced Practice Midwife
DX: Z36.85 Encounter for antenatal screening for Streptococcus B (principal)

== ENCOUNTER 2021-11-06 05:10 | Inpatient (IN) | payer OTHER ==
[~2021-11-06] VITALS: Ht 175.3 cm; Wt 144.0 kg
[2021-11-06] VITALS (13 sets, daily range): BP systolic 119–137; BP diastolic 62–86
[2021-11-06] MEDS ORDERED: TRANEXAMIC ACID INJection 1,000 MG in NS 100 ML IV PRN (05:50)
[2021-11-06] MEDS ORDERED: METHYLERGONOVINE MALEATE 0.2 MG/ML VIAL (J2210) IM PRN (05:50)
[2021-11-06] MEDS ORDERED: CARBOPROST TROMETHAMINE 250 MCG/ML AMP IM PRN (05:50)
[2021-11-06] MEDS ORDERED: OXYTOCIN DRIP 30 UNITS in IV 1 EA IV PRN (05:50)
[2021-11-06] MEDS ORDERED: LIDOCAINE 1% MDV 20ML VIAL INFIL PRN (05:50)
[2021-11-06 06:34] LABS: HEMATOCRIT 40.9 % (36.0-47.0); HEMOGLOBIN 13.5 g/dl (12.0-15.5); MEAN CORPUSCULAR HEMOGLOBIN 27.1 pg (27.0-33.0); MEAN CORPUSCULAR VOLUME 82.1 fl (80.0-96.0); PLATELET COUNT, AUTOMATED 237 10^3/uL (150-450); RED BLOOD COUNT 4.98 10^6/uL (4.00-5.40); WHITE BLOOD COUNT 10.8 10^3/uL (4.0-10.0)
--- NOTE | 2021-11-06 11:23 | HPEPDOC ---
Obstetrical History & Physical General Date of Admission Nov 06, 2021 at 05:51 History of Present Illness 26-year-old G2, P0 presents at 39 weeks 6 days estimated gestational age by first trimester ultrasound complaints of leakage of fluid. Reports contractions. Denies any vaginal bleeding. 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 History: Theraputic Past Medical History Medical History Intracranial hypertension Surgical History: [place] teeth Family History Significant Family History: Cancer, Diabetes, Hypertension Social History Marital Status: Single Psychosocial History: Anxiety * Smoker: non-smoker Alcohol: Denies Drugs: denies Allergies Coded Allergies: ibuprofen (Verified Allergy, Mild, HIVES, 12/10/19) Medications Scheduled PRN Lorazepam (Lorazepam) 1 Mg Tab, 1 TAB PO TID PRN for ANXIETY Miscellaneous Medications Metoprolol Succinate (Metoprolol Succinate) 25 Mg Tab.er.24h Physical Examination Physical Examination GENERAL: Alert and oriented times three. BREAST: . ABDOMEN: Gravid and non-tender to touch. FETUS: Is vertex (VTX) by sterile vaginal examination (SVE), fetus is vertex (VTX) by Krystian. HEART RATE: Regular rate and rhythm. LUNGS: Clear to auscultation (CTA). Vital Signs/I&O Vital Signs Date Time Temp Pulse Resp B/P (MAP) Pulse Ox O2 Delivery O2 Flow Rate FiO2 11/06/21 06:30 110 18 132/79 (96) 11/06/21 05:29 98.0 Laboratory Data 24H LABS Laboratory Tests 2 11/06/21 05:55: Serology Scanned Report Hepatitis B Testing 11/06/21 06:20: Nucleated Red Blood Cells % (auto) 0.0, Coronavirus (COVID-19)(PCR) NEGATIVE CBC/BMP Laboratory Tests 11/06/21 06:20 Pertinent Laboratoy Data Blood Type: A+ RBC Antibody Screen: Negative HIV: Negative Hepatitis B: Negative Hepatitis C: Negative Rapid Plasma Reagin: Nonreactive Rubella: Immune Chlamydia/Gonorrhea: Negative Group B Streptococcus: Negative Glucose Tolerance Test: 118 Anatomy Ultrasound Placenta Location: Posterior Placenta Previa: No Vaginal Examination Dilation: 3 cm Effacement: 70% Station: -2 (Grossly ruptured meconium stained amniotic fluid) Presentation: Cephalic presentation Tocometer Contractions: Yes Frequency: regular Assessment/Plan Assessment 26-year-old at 39 weeks 6 days with spontaneous rupture of membranesmeconium-stained amniotic fluid Reassuring status Plan Admit and orient. Reclaimer and consent. Diet: Clears. Group B Streptococcus (GBS) negative. Labs and intravenous (IV) per unit protocol. Counseled on Pitocin and induction of labor (IOL). Anticipate normal spontaneous delivery (). C-S as appropriate. RAMIRO CARL MD. Nov 06, 2021 11:23
[2021-11-06] MEDS ORDERED: dexameTHASONE 4 MG/ML 1ML VIAL (J1100 PER 1MG) As Ordered ONE (13:51)
[2021-11-06] MEDS ORDERED: KETOROLAC 60MG 2ML VIAL As Ordered ONE (13:51)
[2021-11-06] MEDS ORDERED: fentaNYL 100 MCG/2 ML INJECTION (J3010) As Ordered ONE (13:51)
[2021-11-06] MEDS ORDERED: ONDANSETRON 4MG/2ML VIAL As Ordered ONE (13:51)
[2021-11-06] MEDS ORDERED: OXYTOCIN INJ 10 UNITS/ML VIAL (J2590) As Ordered ONE (13:51)
[2021-11-06] MEDS ORDERED: MORPHINE PRES-FREE INJ 10 MG/10 ML VIAL (J2274) As Ordered ONE (13:52)
[2021-11-06] MEDS ORDERED: ceFAZolin SOD 3 GM IV Place Holder IV ONE (14:05)
[2021-11-06] MEDS ORDERED: AZITHROMYCIN INJ 500 MG, VIAL MATE ADAPTER 1 EACH in NS 250 ML IV ONE (14:05)
[2021-11-06] MEDS ORDERED: BICITRA 30ML SOLN UDC PO ONE (14:05)
[2021-11-06] MEDS ORDERED: ceFAZolin 2 GM/D5W 50 ML IV BAG (J0690 PER 500MG) As Ordered ONE ×2 (14:16→14:31)
[2021-11-06] MEDS ORDERED: ceFAZolin 1GM VIAL (J0690 PER 500MG) As Ordered ONE (14:17)
[2021-11-06] MEDS ORDERED: AZITHROMYCIN INJ 500MG VIAL (J0456 PER 500MG) As Ordered ONE (14:18)
[2021-11-06] MEDS ORDERED: BICITRA 30ML SOLN UDC As Ordered ONE (14:18)
--- NOTE | 2021-11-06 14:22 | IPNPDOC ---
Obstetrical Progress Note Date of Service Nov 06, 2021 Subjective scalp lead previously placed due to category 2 tracing. Patient has continued to have persistent category 2 rate tracing. She was examined and found to be unchanged from her previous examination 3 hours ago. I discussed these findings with patient and her family. Discussed proceeding with section due to persistent category 2 tracing/inability to augment labor remote from delivery. After review decision has been made to proceed with a primary section due to the above indication. All questions been answered and patient agrees with plan. Objective Vital Signs Date Time Temp Pulse Resp B/P (MAP) Pulse Ox O2 Delivery O2 Flow Rate FiO2 11/06/21 06:30 110 18 132/79 (96) 11/06/21 05:29 98.0 Assessment Variability: Minimal Decelerations: Late Heart Rate Tracing: Category II Sterile Vaginal Examination Dilation: 3 cm Effacement (%): 70% Station: -2 Assessment and Plan Age: 26 Status: Non-reassuring Anticipate: Section RAMIRO CARL MD. Nov 06, 2021 14:22
[2021-11-06] MEDS ORDERED: ceFAZolin SOD 1 GM in D5W MINI-BAG PLUS 50 ML IV ONE (14:30)
[2021-11-06] MEDS ORDERED: ceFAZolin SOD 2 GM in IV 1 EA IV ONE (14:30)
[2021-11-06] MEDS ORDERED: METOCLOPRAMIDE INJ 10MG/2ML VIAL (J2765 PER 1) IV PRN (14:40)
[2021-11-06] MEDS ORDERED: diphenhydrAMINE 50MG/ML VIAL (J1200) IV PRN (14:40)
[2021-11-06] MEDS ORDERED: NALBUPHINE HCL 10 MG/ML AMP (J2300) IV PRN (14:40)
[2021-11-06] MEDS ORDERED: ONDANSETRON 4MG/2ML VIAL IV PRN ×3 (14:40→16:20)
[2021-11-06] MEDS ORDERED: NALOXONE INJ 0.4MG/1ML VIAL (J2310 PER 1MG) IV PRN ×2 (14:40)
[2021-11-06] MEDS ORDERED: PHENYLephrine 500MCG 5ML (100MCG/ML) SYRINGE As Ordered ONE (14:52)
[2021-11-06] MEDS ORDERED: RHOGAM 300 MCG (1500 IU) INJ (J2790) IM SCH (14:55)
[2021-11-06] MEDS ORDERED: SIMETHICONE 80MG CHEW TAB PO PRN (14:55)
[2021-11-06] MEDS ORDERED: OXYTOCIN DRIP 30 UNITS in IV 1 EA IV SCH (14:55)
[2021-11-06] MEDS ORDERED: PERCOCET 5MG/325MG TAB PO PRN (14:55)
[2021-11-06] MEDS ORDERED: MOM 30ML SUSPENSION UDC PO PRN (14:55)
[2021-11-06] MEDS ORDERED: MEASLES,MUMPS,RUBELLA VACCINE INJ (MMR-II) (90707) SC SCH (14:55)
--- NOTE | 2021-11-06 16:12 | ROOPDOC ---
[facility] Report Of Operation Report of Operation DATE OF PROCEDURE: 11/06/21 SURGEON: Le Peña M.D. INTERNET SALESPERSON: Jeb Tanner MD ( essential for tissue retractions, exposure and delivery of ) PROCEDURE: Primary section PREOPERATIVE DIAGNOSIS: 1. Persistent category 2 heart tracing remote from delivery POSTOPERATIVE DIAGNOSIS: 1. Persistent category 2 heart tracing remote from delivery ANESTHESIA: Spinal ESTIMATED BLOOD LOSS: 800 mL URINE OUTPUT: 350 mL INTRAVENOUS FLUIDS: 2000 mL of lactated Ringer's solution PREOPERATIVE ANTIBIOTICS:. 3 g of Ancef and 500 azithromycin OPERATIVE FINDINGS: Liveborn female infant, Apgars 8 and 9. Weight 3580 g or 7 pounds 14 ounces SPECIMENS: Cord gases and placenta DESCRIPTION OF PROCEDURE: After informed consent was obtained and written consent was reviewed. The patient was brought to the operating room where spinal anesthesia was placed. She was then placed in the supine position with a left lateral tilt. Christina catheter was placed and to gravity. Patient was then prepped and draped in the normal sterile fashion. A timeout operating room was performed identifying the patient, procedure be performed as well as drug allergies. Anesthesia was tested and deemed to be adequate. Pfannenstiel skin incision was made and this was carried down to the underlying rectus fascia. The fascia was then scored and this incision was extended bilaterally. The fascia was then dissected off the underlying rectus muscle superiorly and inferiorly. The rectus muscles were then in the midline. The peritoneum is then entered. Vesicouterine peritoneum was then tented and excised and a bladder flap was created. Mobius retractor was then placed. Next, a curvilinear incision was then made in the lower uterine segment. I was unable to deliver head through the level of incision. Vacuum was placed and head was delivered atraumatically. Followed by delivery of shoulders and corpus. The cord was c lamped x2. The infant was brought over to the warmer with a good cry. Placenta was drained and delivered grossly intact. The uterus was cleared of all clots and debris and the uterine incision was then closed using 0 Vicryl in a running locking fashion followed by a second layer of 0 Vicryl in a running nonlocking fashion for imbrication. The abdomen suctioned. Surgical sites reinspected and noted be hemostatic. The retractor was then removed. The anterior peritoneum was then reapproximated with 3-0 Vicryl. The rectus muscles were reapproximated 3-0 Vicryl. The fascia was then closed using 0 Vicryl in a running nonlocking fashion. The subcutaneous tissues was then irrigated and suctioned. Subcutaneous tissue was reapproximated using 3-0 Vicryl. Several subdermal stitch is placed using 3-0 Vicryl and the skin was closed with 4-0 Monocryl and subcuticular fashion. This incision was then cleaned and dried and was dressed. The patient was then taken to recovery in stable condition. All counts were correct. . My surgical scrub technologist Dr. Tanner Played in an essential role during the operation. He assisted with tissue identification retraction, delivery of the , as well as wound closure. LE PEÑA MD. Nov 06, 2021 16:12
[2021-11-06 16:15] LABS: CORD GAS ABE A -4.7; CORD GAS HCO3 A 21.2 MEQ/L; CORD GAS O2 SAT A 87.4 %; CORD GAS PCO2 A 41.8 mmHg; CORD GAS PH A 7.322 UNITS; CORD GAS PO2 A 45.2 mmHg; CORD GAS SBC A 20.4 MEQ/L; CORD GAS TCO2 A 22.4 MEQ/L
[2021-11-06 16:16] LABS: CORD GAS ABE V -2.8; CORD GAS HCO3 V 22.6 MEQ/L; CORD GAS O2 SAT V 71.2 %; CORD GAS PCO2 V 41.7 mmHg; CORD GAS PH V 7.352 UNITS; CORD GAS PO2 V 31.5 mmHg; CORD GAS SBC V 21.5 MEQ/L; CORD GAS TCO2 V 23.9 MEQ/L
[2021-11-06] MEDS ORDERED: oxyCODONE 5MG TAB PO PRN (16:20)
[2021-11-06] MEDS ORDERED: fentaNYL 100 MCG/2 ML INJECTION (J3010) IV PRN (16:20)
[2021-11-06] MEDS ORDERED: OXYTOCIN 30 UNITS IN 0.9% NaCl 500ML IV BAG (J2590) As Ordered ONE (16:20)
[2021-11-06] MEDS ORDERED: HYDROMORPHONE HCL 0.5 MG/ 0.5 ML SYRINGE (J1170 PER 1) IV PRN (16:20)
[2021-11-06] MEDS: DOCUSATE SODIUM 100MG CAPSULE PO SCH (20:56)
[2021-11-06] MEDS: METOPROLOL SUCC *XL* 25MG TAB (TopROL *XL*) PO SCH (20:57)
[2021-11-06] MEDS: VENLAFAXINE **XR** 75MG CAPSULE PO SCH (20:57)
[2021-11-06] MEDS: LR 1,000 ML IV SCH (20:58)
[2021-11-07 02:00] VITALS: BP 105/57
[2021-11-07] MEDS: PERCOCET 5MG/325MG TAB PO PRN ×2 (03:48→14:54)
[2021-11-07 06:00] VITALS: BP 133/68
[2021-11-07] MEDS: PRENATAL VITAMINS CHEWABLE TABLET PO SCH (07:27)
[2021-11-07] MEDS: DOCUSATE SODIUM 100MG CAPSULE PO SCH ×2 (07:27→20:04)
[2021-11-07] MEDS: LR 1,000 ML IV SCH ×2 (07:49→07:50)
--- NOTE | 2021-11-07 08:31 | IPNPDOC ---
Progress Note Date of Service: Nov 07, 2021 Day#: 1 Progress Note SUBJECT: Doing well without complaints. Ambulating, voiding and pain is well-c ontrolled. Reports minimal lochia. OBJECTIVE: VITAL SIGNS: Within normal limits, afebrile. Alert and oriented times three. Abdomen: Fundus firm at U-2. Soft, NTTP. Incision: dressed Ext: neg calf tenderness. ASSESSMENT: /postoperative day #1 status post delivery. Recovering in stable condition. PLAN: 1. Continue routine /postoperative care 2. Discharge plans for tomorrow VS, I&O, 24H, Fishbone Vital Signs/I&O Vital Signs Date Time Temp Pulse Resp B/P (MAP) Pulse Ox O2 Delivery O2 Flow Rate FiO2 11/07/21 06:00 97.9 103 20 133/68 (89) 99 Room Air I&O- Last 24 Hours up to 6 AM 11/07/21 06:00 Intake Total 354 ml Output Total 3700 ml Balance -3346 ml Laboratory Data 24H LABS Laboratory Tests 2 11/06/21 15:43: Cord Arterial Blood pH 7.322, Cord Arterial Blood PCO2 41.8, Cord Arterial Blood PO2 45.2, Cord Arterial Blood HCO3 21.2, Cord Arterial Blood Total CO2 22.4, Cord Arterial Blood Base Excess -4.7, Cord Arterial Base Excess (Standard 20.4, Cord Arterial Bld Oxygen Saturation 87.4, Cord Venous Blood pH 7.352, Cord Venous Blood PCO2 41.7, Cord Venous Blood PO2 31.5, Cord Venous Blood HCO3 22.6, Cord Venous Blood Total CO2 23.9, Cord Venous Base Excess (Actual) -2.8, Cord Venous Base Excess (Standard) 21.5, Cord Venous Blood Oxygen Saturation 71.2 CBC/BMP RAMIRO CARL MD. Nov 07, 2021 08:31
[2021-11-07 08:38] LABS: HEMATOCRIT 31.4 % (36.0-47.0); MEAN CORPUSCULAR HEMOGLOBIN 26.9 pg (27.0-33.0); MEAN CORPUSCULAR HGB CONC 32.5 g/dl (32.0-36.5); MEAN CORPUSCULAR VOLUME 82.8 fl (80.0-96.0); PLATELET COUNT, AUTOMATED 184 10^3/uL (150-450); RED BLOOD COUNT 3.79 10^6/uL (4.00-5.40); WHITE BLOOD COUNT 11.3 10^3/uL (4.0-10.0)
[2021-11-07 08:46] LABS: HEMOGLOBIN 10.2 g/dl (12.0-15.5)
[2021-11-07 10:31] VITALS: BP 119/56
[2021-11-07 14:00] VITALS: BP 132/68
[2021-11-07 18:27] VITALS: BP 112/56
[2021-11-07] MEDS: METOPROLOL SUCC *XL* 25MG TAB (TopROL *XL*) PO SCH (20:04)
[2021-11-07] MEDS: VENLAFAXINE **XR** 75MG CAPSULE PO SCH (20:04)
[2021-11-07 22:00] VITALS: BP 148/78
[2021-11-08 02:00] VITALS: BP 119/59
[2021-11-08 06:00] VITALS: BP 141/74
[2021-11-08] MEDS: PRENATAL VITAMINS CHEWABLE TABLET PO SCH (07:35)
[2021-11-08] MEDS: DOCUSATE SODIUM 100MG CAPSULE PO SCH (07:35)
[2021-11-08] MEDS: PERCOCET 5MG/325MG TAB PO PRN (07:36)
[2021-11-08] MEDS ORDERED: PERCOCET PO (10:07)
[2021-11-08] MEDS ORDERED: COLA100C5 PO (10:07)
[2021-11-08 10:12] VITALS: BP 125/68
--- NOTE | 2021-11-08 10:45 | OBDS ---
[facility] Obstetrical Discharge Sum. Obstetrical Discharge Summary Date: Nov 08, 2021 : 2 Term: 1 Rh: Positive Rubella: Immune Delivery LTCS Anesthesia: Regional Anesthesia A/P, Post Course List any complications Admission diagnosis: labor Discharge diagnosis: post Condition at Discharge: stable Discharge Instructions: home Activity: as tolerated Diet: regular Medications:see med rec Follow-up: two week incision check ERIC ISIDRO MD Nov 08, 2021 10:45
== END 2021-11-08 12:50 | disposition home or self-care (01) | DRG 540 ==
LOC: M LDO 05:10 → M LDI 05:51 → M OBS 17:35
PROVIDERS: ADMIT Advanced Practice Midwife; ATTEND Advanced Practice Midwife
PROC: 10D00Z1 Extraction of Products of Conception, Low, Open Approach (ICD-10-PCS; principal; 2021-11-06 15:17)
DX: O77.0 Labor and delivery complicated by meconium in amniotic fluid (principal); Z37.0 Single live birth; Z3A.39 39 weeks gestation of pregnancy

== ENCOUNTER → 2021-12-04 | Outpatient (REF) | payer OTHER ==
[~2021-12-04] MED LIST changes: +COLA100C5 PO; -LEVO500T3 PO; +LEVO500T4 PO; +PERCOCET PO
== END ==
LOC: M SFHCWAGY 17:12
PROVIDERS: ATTEND Advanced Practice Midwife
DX: O34.22 Maternal care for cesarean scar defect (isthmocele) (principal); Z3A.00 Weeks of gestation of pregnancy not specified

== ENCOUNTER → 2022-07-23 | Outpatient (REF) | payer OTHER ==
[~2022-07-23] MED LIST changes: +LEVO1TAB39 PO; -LEVO500T4 PO
[2022-07-23 16:06] LABS: FREE T4 0.91 NG/DL (0.76-1.46); THYROID STIMULATING HORMONE 2.38 uIU/ML (0.358-3.740)
== END ==
LOC: M LABDRAWC 11:25
PROVIDERS: ATTEND Internal Medicine Cardiovascular Disease
DX: I47.1 Supraventricular tachycardia (principal)

== ENCOUNTER → 2022-08-19 | Outpatient (CLI) | payer OTHER ==
[~2022-08-19] MED LIST changes: +ISOVUE-370 76% 100ML VIAL As Ordered ONE
== END ==
LOC: M RAD 15:52
PROVIDERS: ATTEND Nurse Practitioner Family
DX: R91.1 Solitary pulmonary nodule (principal); K80.20 Calculus of gallbladder without cholecystitis without obstruction
CPT/HCPCS: 71260; Q9967

== ENCOUNTER → 2022-12-18 | Outpatient (REF) | payer OTHER ==
[~2022-12-18] MED LIST changes: -ISOVUE-370 76% 100ML VIAL As Ordered ONE; -POTA10CA32 PO; +POTA10CA33 PO
== END ==
LOC: M SFHCCLAY 11:50
PROVIDERS: ATTEND Nurse Practitioner Family
DX: Z01.419 Encounter for gynecological examination (general) (routine) without abnormal findings (principal)

== ENCOUNTER → 2024-02-24 | Outpatient (REF) | payer OTHER ==
[~2024-02-24] MED LIST changes: +LORA1TAB23 PO; -LORA1TAB4 PO; -POTA10CA33 PO; +POTA10CA60 PO
[2024-02-24 14:06] LABS: HEMOGLOBIN A1c 4.8 % (4.0-6.0)
[2024-02-24 14:29] LABS: THYROID STIMULATING HORMONE 2.971 uIU/ML (0.55-4.78)
[2024-02-24 14:30] LABS: FREE T4 0.95 NG/DL (0.89-1.76)
[2024-02-24 14:35] LABS: ALBUMIN 4.2 G/DL (3.2-5.2); ALKALINE PHOSPHATASE 69 U/L (46-116); ALT/SGPT 44 U/L (7.0-40); AST/SGOT 21 U/L (<34); BILIRUBIN,TOTAL 0.8 MG/DL (0.3-1.2); BLOOD UREA NITROGEN 14 MG/DL (9-23); CALCIUM LEVEL 9.2 MG/DL (8.5-10.1); CARBON DIOXIDE LEVEL 27 MMOL/L (20-31); CHLORIDE LEVEL 103 MMOL/L (98-107); CHOLESTEROL LEVEL 156 MG/DL (<200); CHOLESTEROL RISK RATIO 3.48 (<5); CREATININE FOR GFR 0.63 MG/DL (0.55-1.30); GLOMERULAR FILTRATION RATE > 60.0 (>60); GLUCOSE, FASTING 66 MG/DL (60-100); HDL CHOLESTEROL 44.7 MG/DL (>40); LDL CHOLESTEROL 87.5 MG/DL (<100); NON-HDL-C 111.3 MG/DL; POTASSIUM SERUM 4.2 MMOL/L (3.5-5.1); SODIUM LEVEL 139 MMOL/L (136-145); TOTAL PROTEIN 7.2 G/DL (5.7-8.2); TRIGLYCERIDES LEVEL 119 MG/DL (<150)
== END ==
LOC: M SFHCCLAY 10:53
PROVIDERS: ATTEND Nurse Practitioner Family
DX: E66.01 Morbid (severe) obesity due to excess calories (principal); R00.0 Tachycardia, unspecified; F41.9 Anxiety disorder, unspecified; Z13.1 Encounter for screening for diabetes mellitus

== ENCOUNTER → 2024-04-12 | Outpatient (CLI) | payer OTHER ==
[~2024-04-12] MED LIST changes: +DOXY-323 PO; -DOXY-443 PO; -POTA10CA60 PO; +POTA10CA70 PO
== END ==
LOC: M WHC 08:08
PROVIDERS: ATTEND Nurse Practitioner Family
DX: Z12.31 Encounter for screening mammogram for malignant neoplasm of breast (principal)

== ENCOUNTER → 2024-11-01 | Outpatient (REF) | payer OTHER ==
[~2024-11-01] MED LIST changes: -DOXY-323 PO; +DOXY-441 PO
[2024-11-01 12:42] LABS: ALBUMIN 3.6 G/DL (3.2-5.2); ALKALINE PHOSPHATASE 69 U/L (35-104); ALT/SGPT 27 U/L (7.0-40); AST/SGOT 17 U/L (<34); BILIRUBIN,TOTAL 0.7 MG/DL (0.3-1.2); BLOOD UREA NITROGEN 15 MG/DL (9-23); CALCIUM LEVEL 9.1 MG/DL (8.5-10.1); CARBON DIOXIDE LEVEL 29 MMOL/L (20-31); CHLORIDE LEVEL 105 MMOL/L (98-107); CHOLESTEROL LEVEL 148 MG/DL (<200); CHOLESTEROL RISK RATIO 3.22 (<5); CREATININE FOR GFR 0.61 MG/DL (0.55-1.30); GLOMERULAR FILTRATION RATE > 60.0 (>60); GLUCOSE, FASTING 75 MG/DL (60-100); HDL CHOLESTEROL 45.9 MG/DL (>40); LDL CHOLESTEROL 88.7 MG/DL (<100); NON-HDL-C 102.1 MG/DL; SODIUM LEVEL 139 MMOL/L (136-145); TOTAL PROTEIN 7.3 G/DL (5.7-8.2); TRIGLYCERIDES LEVEL 67 MG/DL (<150)
[2024-11-01 12:44] LABS: FREE T4 0.92 NG/DL (0.89-1.76)
[2024-11-01 12:45] LABS: THYROID STIMULATING HORMONE 1.831 uIU/ML (0.55-4.78)
[2024-11-01 13:03] LABS: HEMOGLOBIN A1c 4.5 % (4.0-6.0)
== END ==
LOC: M SFHCCLAY 09:28
PROVIDERS: ATTEND Nurse Practitioner Family
DX: N89.8 Other specified noninflammatory disorders of vagina (principal); E66.01 Morbid (severe) obesity due to excess calories; R00.0 Tachycardia, unspecified

== ENCOUNTER 2025-07-06 14:52 | Emergency (ER) | payer OTHER, SELFPAY ==
[~2025-07-06] VITALS: Ht 177.8 cm; Wt 115.7 kg
[2025-07-06 14:57] VITALS: BP 123/78; TEMP 96.9; O2SAT 98
== END 2025-07-06 15:04 | disposition left against medical advice (07) ==
LOC: M ED 14:52
DX: Z53.21 Procedure and treatment not carried out due to patient leaving prior to being seen by health care provider (principal)

== ENCOUNTER → 2025-11-22 | Outpatient (REF) | payer OTHER | LOC: M SFHCCLAY 12:07 | PROVIDERS: ATTEND Physician Assistant | DX: N89.8 Other specified noninflammatory disorders of vagina (principal) ==